=== PATIENT | male | born 1945 | race Caucasian/White ===

== ENCOUNTER 2018-01-17 08:58 | Emergency (ER) | payer BC ==
--- NOTE | 2018-01-17 09:21 | ERPHSYRPT ---
- History of Present Illness Time Seen by Provider: 01/17/18 09:04 Source: patient, family Exam Limitations: no limitations Physician History: brought patient in because having trouble walking without running into door and [place] for am events; he states he feels dizzy/light headed; no visual problems; no headache; n loc; no speech changes; no weakness locally; no recent trauma ; no prior hx; had trouble driving this am; slept well; no changes in meds; took meds this am hx fo intermittant atrial fib; has been i NSR since last stent Timing/Duration: today, hour(s) (1-2 hours), sudden (when got out of bed this am ), improved (now) Severity: moderate Character of Deficits: other (ambulations issues) Deficits: no difficulties Baseline/Normal Cognition: alert oriented x 3 Current Cognition: alert oriented x 3 Baseline Gait: walks w/o assistance Associated Symptoms: ringing in ears (chronic), trouble walking (this am), other (loss of memeory) Allergies/Adverse Reactions: diazepam [From Valium] Adverse Reaction (Mild, Verified 01/17/18 09:06) "FELT LIKE I WAS DIEING" Home Medications: Amlodipine Besylate 5 mg [Norvasc 5 mg] 5 mg PO DAILY 07/26/14 [History] Aspirin 81 mg PO DAILY 07/26/14 [History] Escitalopram Oxalate 10 mg [Lexapro 10 MG] 10 mg PO DAILY 07/26/14 [History] Amlodipine Besylate 5 mg [Norvasc 5 mg] 5 mg PO DAILY 02/05/15 [History] Fenofibrate,Micronized 145 mg* [Tricor 145 MG] 145 mg PO CLARIFY 02/05/15 [ History] Glyburide 2.5 mg PO DAILY 02/05/15 [History] Lisinopril 10 mg [Zestril 10 MG] 10 mg PO DAILY 02/05/15 [History] Omeprazole 20 MG [Prilosec 20 mg] 20 mg PO DAILY 02/05/15 [History] Propranolol HCl 40 mg PO BID 02/05/15 [History] Hx Tetanus, Diphtheria Vaccination/Date Given: Yes (2013) Hx Influenza Vaccination/Date Given: No Hx Pneumococcal Vaccination/Date Given: No - Review of Systems Constitutional: Other (light headed and difficulty ambulating) Eyes: No Symptoms Ears, Nose, & Throat: Tinnitus (chronic), No Ear Pain, No Nose Congestion, No Mouth Pain, No Throat Pain Respiratory: No Cough, No Dyspnea, No Wheezing Cardiac: No Chest Pain, No Edema, No Palpitations, No Syncope Abdominal/Gastrointestinal: No Abdominal Pain, No Nausea, No Vomiting, No Diarrhea Genitourinary Symptoms: No Symptoms Musculoskeletal: No Symptoms Skin: No Symptoms Neurological: Dizziness (not vertigo), Other (memory issues this am and trouble ambulating in a straight line) Psychological: No Symptoms Endocrine: No Symptoms Hematologic/Lymphatic: No Symptoms Immunological/Allergic: No Symptoms - Past Medical History Pertinent Past Medical History: Yes Neurological History: No Pertinent History ENT History: No Pertinent History Cardiac History: Angina (stents x 2), High Cholesterol, Hypertension Respiratory History: No Pertinent History Endocrine Medical History: Diabetes Type I Musculoskeletal History: No Pertinent History GI Medical History: GERD History: No Pertinent History Psycho-Social History: No Pertinent History Male Reproductive Disorders: No Pertinent History Other Medical History: chronic JOHNSON - Past Surgical History Past Surgical History: Yes Neuro Surgical History: No Pertinent History Cardiac: No Pertinent History Respiratory: No Pertinent History Gastrointestinal: Cholecystectomy Genitourinary: No Pertinent History Musculoskeletal: Orthopedic Surgery Male Surgical History: No Pertinent History Other Surgical History: L4-5 SURGERYBICEP SEPARATION bone spurBILAT KNEE SCOPES , bone spurs removed. knees scoped..Debridment of right buttock - Social History Smoking Status: Never smoker Exposure to second hand smoke: No Alcohol Use: Socially Drug Use: none Patient Lives Alone: No Significant Family History: diabetes, hypertension - Female History Hx Now: No - Nursing Vital Signs Nursing Vital Signs: Initial Vital Signs Temperature 98.6 F 01/17/18 09:18 Pulse Rate 74 01/17/18 09:18 Respiratory Rate 18 01/17/18 09:18 Blood Pressure 159/93 01/17/18 09:18 O2 Sat by Pulse Oximetry 95 01/17/18 09:18 Pain Scale Pain Intensity 0 - Kelvin Coma Scale Best Eye Response (Kelvin): (4) open spontaneously Best Verbal Response (Sawyer): (5) oriented Best Motor Response (Kelvin): (6) obeys commands Kelvin Total: 15 - Physical Exam General Appearance: mild distress, alert, obese Eye Exam: bilateral eye: normal inspection, PERRL, EOMI, other (vision ok; no nystagmus; fundi benign) Ears, Nose, Throat Exam: normal ENT inspection, TMs normal, pharynx normal, moist mucous membranes Neck Exam: normal inspection, non-tender, supple, full range of motion, No meningismus, No carotid bruit, No JVD Respiratory: normal breath sounds, lungs clear, airway intact, No chest tenderness, No respiratory distress Cardiovascular: regular rate/rhythm, normal heart sounds, normal peripheral pulses, capillary refill <2 sec, No murmur Gastrointestinal: soft, normal bowel sounds, distention (softly), No tenderness , No mass, No guarding, No pulsatile mass, No rebound, No organomegaly Rectal Exam: deferred Back Exam: normal inspection, normal range of motion, No CVA tenderness, No vertebral tenderness, No rash Extremity Exam: normal inspection, normal range of motion, pedal edema (trace), No parasthesia, No paralysis, No navid's sign Peripheral Pulses: carotid (R): 4+, carotid (L): 4+, femoral (R): 4+, femoral (L ): 4+, dorsalis-pedis (R): 3+, dorsalis-pedis (L): 3+ Mental Status: alert, oriented x 3, cooperative hide curer Exam: normal hearing, normal speech, PERRL, tongue midline, No abnormal speech, No facial asymmetry Coordination/Gait: normal finger to nose, normal gait, normal cerebellar function, negative Romberg's sign Motor/Sensory: no motor deficit, no sensory deficit, no pronator drift, negative Babinski's sign DTR: knee (R): 4+, knee (L): 4+ Skin Exam: normal color, warm, dry, No rash, No petechiae SpO2 Interpretation: normal, O2 applied SpO2: 94 Oxygen Delivery: Room Air - Course Nursing assessment & vital signs reviewed: Yes EKG Interpreted by Me: RATE (80), A-fib, Left [place] Deviation, NORMAL INTERVALS, NORMAL QRS, Non-specific ST Changes (helena T's ? low K+) Rhythm Strip: Rate (80), Atrial Fibrillation - Radiology Exams Chest X-ray Interpretation: Reviewed by me, Teleradiologist Report (new left base discoid atelectasis/scarring), No Pneumonia, No Pneumothorax, Nml Heart Size, No Infiltrates - CT Exams Head CT Interpretation: Negative, Tele-radiologist Report, No/Intracranial Hemorrhag Ordered Tests: Active Orders 24 hr Category Date Time Status Accucheck STAT Care 01/17/18 09:13 Active Fast Food Worker STAT Care 01/17/18 09:14 Active EKG-ER Only STAT Care 01/17/18 09:13 Active IV Insertion STAT Care 01/17/18 09:13 Active Orthostatic Vital Signs STAT Care 01/17/18 09:15 Active Pulse Oximetry (ED) STAT Care 01/17/18 09:13 Active Re-Check Vital Signs STAT Care 01/17/18 09:13 Active CHEST 1 VIEW (PORTABLE) Stat Exams 01/17/18 09:14 Completed HEAD WITHOUT CONTRAST [CT] Stat Exams 01/17/18 09:14 Completed CBC W DIFF Stat Lab 01/17/18 09:25 Completed CMP Stat Lab 01/17/18 09:25 Completed Manual Differential NC Stat Lab 01/17/18 09:25 Completed PROTIME WITH INR Stat Lab 01/17/18 09:25 Completed Lab/Rad Data: Laboratory Result Diagrams 01/17/18 09:25 01/17/18 09:25 Laboratory Results 01/17/18 01/17/18 01/17/18 Range/Units 09:25 09:25 09:25 WBC 6.7 (4.0-10.5) K/mm3 RBC 4.82 (4.1-5.6) M/mm3 Hgb 14.1 (12.5-18.0) gm/dl Hct 44.2 (42-50) % MCV 91.7 (78-100) fl MCH 29.3 (26-32) pg MCHC 31.9 L (32-36) g/dl RDW 14.5 H (11.5-14.0) % Plt Count 272 (150-450) K/mm3 MPV 10.0 H (6-9.5) fl Segmented Neutrophils 66 (36.-66.) % Lymphocytes (Manual) 25 (24-44) % Monocytes (Manual) 5 (0.0-12.0) % Eosinophils (Manual) 2 (0.00-3.0) % Basophils (Manual) 2 H (0.0-1.0) % Differential Comment NORMAL Platelet Estimate NORMAL (NORMAL) INR 1.09 (0.8-3.0) Sodium 142 (137-145) mmol/L Potassium 4.4 (3.5-5.1) mmol/L Chloride 100 (98-107) mEq/L Carbon Dioxide 30 (22-30) mmol/L Anion Gap 16.5 MEQ/L BUN 26 H (9-20) mg/dl Creatinine 1.27 H (0.66-1.25) mg/dl Estimated GFR 60 ML/MIN Glucose 122 H (74-106) mg/dL Calcium 9.3 (8.4-10.2) mg/dl Total Bilirubin 0.40 (0.2-1.3) mg/d? 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 Call for appointment. Return if any problems. If you smoke please stop. Call or follow up with your family doctor for assistance if you need it to stop. Please wear your seatbelt when driving. Have a nice day. Thank you for allowing us to participate in your care today. :o) Dr Jarrod Guillen
[2018-01-17 09:30] LABS: Granulocyte Absolute (ANC) 4.43 (1.4-6.9); Hematocrit 44.2 % (42-50); Hemoglobin 14.1 gm/dl (12.5-18.0); Mean Cell Volume 91.7 fl (78-100); Mean Corpuscular Hemoglobin 29.3 pg (26-32); Mean Corpuscular Hgb Concent. 31.9 g/dl (32-36); Platelet Count 272 K/mm3 (150-450); Red Blood Count 4.82 M/mm3 (4.1-5.6); Red Cell Distribution Width 14.5 % (11.5-14.0); White Blood Count 6.7 K/mm3 (4.0-10.5)
[2018-01-17 09:44] LABS: INR 1.09 (0.8-3.0)
[2018-01-17 09:49] LABS: ALBUMIN 4.4 g/dl (3.5-5.0); ANION GAP 16.5 MEQ/L; BILIRUBIN,TOTAL 0.4 mg/d? (0.2-1.3); Calcium 9.3 mg/dl (8.4-10.2); Creatinine 1 1.27 mg/dl (0.66-1.25); Potassium 4.4 mmol/L (3.5-5.1); Total Protein 7.7 mg/dl (6.3-8.2)
[2018-01-17 09:56] LABS: Basophil 2 % (0.0-1.0); Eosinophil 2 % (0.00-3.0); Lymphocytes 25 % (24-44); Monocyte 5 % (0.0-12.0); Neutrophils 66 % (36.-66.); Platelet Estimate NORMAL (NORMAL); Total Cells Counted 100
--- NOTE | 2018-01-17 10:08 | XRAY ---
Indication: Lightheaded and dizziness. Multiple contiguous axial images obtained through the head without contrast. Comparison: September 20, 2010. Study slightly degraded by motion artifact. Again grossly normal appearing brain parenchyma, ventricles, and bony calvarium. Visualized paranasal sinuses and mastoid air cells are clear. Impression: Stable normal CT head without contrast exam. CTDI 67.00
--- NOTE | 2018-01-17 10:10 | XRAY ---
Indication: Lightheaded and dizziness. Comparison: September 20, 2010. Portable chest demonstrates new left base discoid atelectasis/scarring. Remaining heart, lungs, and bony thorax unremarkable.
[2018-01-17 11:15] VITALS: BP 149/86; PULSE 86
[2018-01-17 11:17] VITALS: O2SAT 94
== END 2018-01-17 11:29 | disposition home or self-care (01) ==
LOC: ED 08:58
DX: I48.91 Unspecified atrial fibrillation (principal); E78.00 Pure hypercholesterolemia, unspecified; I10 Essential (primary) hypertension; E10.9 Type 1 diabetes mellitus without complications; K21.9 Gastro-esophageal reflux disease without esophagitis
CPT/HCPCS: 36000; 36415; 70450; 71045; 80053; 82962; 85025; 85610; 93005; 93041; 99284